=== PATIENT | female | born 1985 | race Caucasian/White ===

== ENCOUNTER 2020-10-15 10:01 | Emergency (ER) | payer OTHER, SELFPAY ==
[~2020-10-15] VITALS: Ht 170.2 cm; Wt 97.5 kg
[2020-10-15 10:25] VITALS: BP_SYST 180
[2020-10-15 11:46] VITALS: BP_SYST 180
== END 2020-10-15 11:46 | disposition home or self-care (01) ==
LOC: SED 10:01
DX: U07.1 COVID-19 (principal)
CPT/HCPCS: 99283; C9803; U0003

== ENCOUNTER 2023-07-30 07:11 | Outpatient (CLI) | payer OTHER ==
[2023-07-30 07:50] LABS: BASOPHILS # (AUTO) 0.1 K/uL (0.0-0.2); BASOPHILS % (AUTO) 0.6 % (0.0-2.0); EOSINOPHILS % (AUTO) 0.2 % (0.0-4.0); HEMATOCRIT 46.9 % (36-48); HEMOGLOBIN 15.1 g/dL (12.0-16.0); LYMPHOCYTES # (AUTO) 4.4 K/uL (1.0-5.5); MEAN CORPUSCULAR HEMOGLOBIN 26 pg (27-31); MEAN CORPUSCULAR HGB CONC 32 % (32-36); MEAN CORPUSCULAR VOLUME 81 fL (79.0-98.0); MONOCYTES # (AUTO) 0.8 K/uL (0.0-1.0); MONOCYTES % (AUTO) 6.2 % (1.7-9.3); NEUTROPHILS # (AUTO) 8.1 K/uL (1.8-7.7); PLATELET COUNT (AUTO) 253 K/uL (130-430); RED BLOOD CELL COUNT(AUTO) 5.82 MIL/uL (4.2-6.2); RED CELL DISTRIBUTION WIDTH 13.1 % (9.0-15.0); WHITE BLOOD COUNT (AUTO) 13.4 K/uL (4.8-10.8)
[2023-07-30 08:04] LABS: CLARITY/URINE CLEAR (CLEAR); COLOR,URINE YELLOW (YELLOW)
[2023-07-30 08:05] LABS: BILIRUBIN,URINE NEGATIVE (NEGATIVE); BLOOD, URINE 1+ (NEGATIVE); GLUCOSE,URINE 3+ (NEGATIVE); KETONES,URINE NEGATIVE (NEGATIVE); LEUKOCYTE ESTERASE ,URINE NEGATIVE (NEGATIVE); NITRITE, URINE NEGATIVE (NEGATIVE); PROTEIN URINE TRACE (NEGATIVE); UROBILINOGEN,URINE 0.2 (0.2-1.0)
[2023-07-30 08:07] LABS: ALBUMIN 3.7 g/dL (3.4-4.8); CALCIUM 9.5 mg/dL (8.4-11.0); CREATININE 0.72 mg/dL (0.55-1.30); FREE T4 (FREE THYROXINE) 1.2 ng/dL (0.6-1.6); POTASSIUM 3.6 mmol/L (3.5-5.1); THYROID STIMULATING HORMONE 2.6 uIu/mL (0.34-4.82); TOTAL BILIRUBIN 0.8 mg/dL (0.0-1.0); TOTAL PROTEIN, SERUM 7.4 g/dL (6.4-8.3)
[2023-07-30 08:09] LABS: BACTERIA,URINE RARE /HPF (None Seen); WBC,URINE 0-3 /HPF (0-3)
== END 2023-07-30 21:02 | disposition home or self-care (01) ==
LOC: SLB 07:11
PROVIDERS: ATTEND Family Medicine
DX: Z00.00 Encounter for general adult medical examination without abnormal findings (principal)
CPT/HCPCS: 36415; 80053; 80061; 81000; 81001; 81015; 84439; 84443; 85025

== ENCOUNTER 2023-11-30 08:13 | Emergency (ER) | payer OTHER ==
[~2023-11-30] VITALS: Ht 167.6 cm; Wt 140.6 kg
[2023-11-30 08:19] VITALS: BP_SYST 146; PULSE 98; RESP 16; TEMP 97.7; O2SAT 98
[2023-11-30 08:58] LABS: COVID19 ANTIGEN SOFIA FIA NEGATIVE (NEGATIVE); INFLUENZA TYPE A Negative (NEGATIVE); INFLUENZA TYPE B NEGATIVE (NEGATIVE)
[2023-11-30] MEDS: ALBUTEROL SULFATE 0.083% 2.5 MG/3 ML VIAL.NEB INH ONE (09:02)
[2023-11-30] MEDS: predniSONE 20 MG TABLET PO ONE (09:03)
[2023-11-30] MEDS ORDERED: AZIT-93 PO (09:39)
[2023-11-30] MEDS ORDERED: PRED20TA PO (09:39)
[2023-11-30] MEDS ORDERED: ALBMDI INH (09:39)
[2023-11-30 09:54] VITALS: BP_SYST 119; PULSE 93; RESP 20; TEMP 98.7; O2SAT 98
== END 2023-11-30 09:50 | disposition home or self-care (01) ==
LOC: SED 08:13
DX: R05.9 Cough, unspecified (principal); R06.2 Wheezing; R09.81 Nasal congestion; E11.9 Type 2 diabetes mellitus without complications; I10 Essential (primary) hypertension; Z91.013 Allergy to seafood; Z79.899 Other long term (current) drug therapy; Z20.822 Contact with and (suspected) exposure to COVID-19
CPT/HCPCS: 99284; 71046; 87426; 36415; 94640; 81025; 87804 ×2; J7512

== ENCOUNTER 2024-04-08 07:56 | Outpatient (CLI) | payer OTHER ==
[~2024-04-08 07:56] MED LIST: ALBMDI INH; AZIT-93 PO; PRED20TA PO
== END 2024-04-08 19:23 | disposition home or self-care (01) ==
LOC: SMA 07:56
PROVIDERS: ATTEND Family Medicine
DX: Z12.31 Encounter for screening mammogram for malignant neoplasm of breast (principal); D25.9 Leiomyoma of uterus, unspecified; N83.202 Unspecified ovarian cyst, left side
CPT/HCPCS: 76830; 76857; 77067

== ENCOUNTER 2024-05-01 12:54 | Emergency (ER) | payer OTHER ==
[~2024-05-01] VITALS: Ht 167.6 cm; Wt 133.8 kg
[2024-05-01 13:06] VITALS: BP_SYST 122; PULSE 100; RESP 16; TEMP 96.9; O2SAT 100
[2024-05-01 14:12] LABS: BILIRUBIN,URINE NEGATIVE (NEGATIVE); BLOOD, URINE 2+ (NEGATIVE); CLARITY/URINE CLEAR (CLEAR); COLOR,URINE YELLOW (YELLOW); GLUCOSE,URINE 3+ (NEGATIVE); KETONES,URINE NEGATIVE (NEGATIVE); LEUKOCYTE ESTERASE ,URINE NEGATIVE (NEGATIVE); NITRITE, URINE NEGATIVE (NEGATIVE); PROTEIN URINE NEGATIVE (NEGATIVE); UROBILINOGEN,URINE 0.2 (0.2-1.0)
[2024-05-01] MEDS ORDERED: LEVO-62 PO (14:43)
[2024-05-01 14:51] VITALS: BP_SYST 122; PULSE 100; RESP 16; TEMP 96.9; O2SAT 100
[2024-05-01 15:05] LABS: WBC,URINE NONE SEEN /HPF (0-3)
[2024-05-01 15:06] LABS: BACTERIA,URINE None Seen /HPF (None Seen)
== END 2024-05-01 14:52 | disposition home or self-care (01) ==
LOC: SED 12:54
DX: R31.29 Other microscopic hematuria (principal); R10.30 Lower abdominal pain, unspecified; E11.9 Type 2 diabetes mellitus without complications; I10 Essential (primary) hypertension; Z91.013 Allergy to seafood; Z79.899 Other long term (current) drug therapy; Z79.2 Long term (current) use of antibiotics
CPT/HCPCS: 81000; 81001; 81015; 81025; 87086; 99283

== ENCOUNTER 2024-05-12 11:20 | Emergency (ER) | payer OTHER ==
[~2024-05-12] VITALS: Ht 167.6 cm; Wt 131.5 kg
[~2024-05-12 11:20] MED LIST changes: +LEVO-62 PO
[2024-05-12 11:41] VITALS: BP_SYST 160; PULSE 88; RESP 22; TEMP 98.3; O2SAT 98
[2024-05-12] MEDS: ALBUTEROL SULFATE 0.083% 2.5 MG/3 ML VIAL.NEB INH ONE (12:20)
[2024-05-12 12:39] LABS: BASOPHILS # (AUTO) 0.1 K/uL (0.0-0.2); BASOPHILS % (AUTO) 0.9 % (0.0-2.0); EOSINOPHILS # (AUTO) 0.4 K/uL (0.0-0.4); EOSINOPHILS % (AUTO) 3.9 % (0.0-4.0); HEMATOCRIT 45.5 % (36-48); HEMOGLOBIN 15.1 g/dL (12.0-16.0); LYMPHOCYTES # (AUTO) 2.5 K/uL (1.0-5.5); LYMPHOCYTES % (AUTO) 26.5 % (20.5-51.5); MEAN CORPUSCULAR HEMOGLOBIN 27 pg (27-31); MEAN CORPUSCULAR HGB CONC 33 % (32-36); MEAN CORPUSCULAR VOLUME 82 fL (79.0-98.0); MONOCYTES # (AUTO) 0.7 K/uL (0.0-1.0); MONOCYTES % (AUTO) 7.1 % (1.7-9.3); NEUTROPHILS # (AUTO) 5.9 K/uL (1.8-7.7); NEUTROPHILS % (AUTO) 61.6 % (40.0-70.0); PLATELET COUNT (AUTO) 237 K/uL (130-430); RED BLOOD CELL COUNT(AUTO) 5.57 MIL/uL (4.2-6.2); RED CELL DISTRIBUTION WIDTH 14.6 % (9.0-15.0); WHITE BLOOD COUNT (AUTO) 9.5 K/uL (4.8-10.8)
[2024-05-12] MEDS: prednisoLONE 15 MG/5 ML UDC PO ONE (12:51)
[2024-05-12 12:55] LABS: CALCIUM 8.8 mg/dL (8.4-11.0); CREATININE 0.59 mg/dL (0.55-1.30); POTASSIUM 3.9 mmol/L (3.5-5.1)
[2024-05-12 12:58] LABS: COVID19 ANTIGEN SOFIA FIA NEGATIVE (NEGATIVE)
[2024-05-12] MEDS ORDERED: METH-776 PO (13:45)
[2024-05-12] MEDS ORDERED: ALBMDI INH (13:45)
[2024-05-12] MEDS ORDERED: AZIT500T PO (13:45)
[2024-05-12 13:56] LABS: INFLUENZA TYPE A Negative (NEGATIVE); INFLUENZA TYPE B NEGATIVE (NEGATIVE)
[2024-05-12 14:13] VITALS: BP_SYST 151; PULSE 87; RESP 20; TEMP 97.2; O2SAT 97
== END 2024-05-12 18:47 | disposition home or self-care (01) ==
LOC: SED 11:20
DX: J45.909 Unspecified asthma, uncomplicated (principal); Z20.822 Contact with and (suspected) exposure to COVID-19; E11.9 Type 2 diabetes mellitus without complications; I10 Essential (primary) hypertension; Z91.013 Allergy to seafood; Z79.899 Other long term (current) drug therapy; Z79.2 Long term (current) use of antibiotics
CPT/HCPCS: 36415; 71045; 80048; 85025; 94664; 94760; 99284